=== PATIENT | female | born 1975 | race Caucasian/White ===

== ENCOUNTER 2018-05-30 11:28 | Emergency (ER) | payer MEDICAID ==
[~2018-05-30] VITALS: Ht 157.5 cm; Wt 83.0 kg
[2018-05-30 12:27] VITALS: Ht 157.5 cm; Wt 83.0 kg
[2018-05-30 13:43] LABS: BASOPHIL % 0.2 % (0-2); PLATELET COUNT 242 x10^3mcL (130-400)
[2018-05-30 13:52] LABS: RED CELL DISTRIBUTION WIDTH 14.6 % (11.5-14.5)
[2018-05-30 13:57] LABS: CALCIUM 9.3 mg/dL (8.5-10.1); CARBON DIOXIDE 24.4 mmol/L (21-32); CHLORIDE SERUM 105 mmol/L (98-107); CREATININE SERUM 0.7 mg/dL (0.6-1.0); GFR1 > 60 mL/min; GLUCOSE SERUM 114 mg/dL (74-106); POTASSIUM SERUM 4.5 mmol/L (3.5-5.1); SODIUM SERUM 135 mmol/L (136-145)
[2018-05-30 14:02] LABS: ALBUMIN 3.4 g/dL (3.4-5.0); ALKALINE PHOSPHATASE 77 U/L (46-116); ALT/SGPT 27 U/L (14-59); AST/SGOT 15 U/L (15-37); BILIRUBIN TOTAL 0.1 mg/dL (0.20-1.00); LIPASE 198 IU/L (73-393); TOTAL PROTEIN, SERUM 8.2 g/dL (6.4-8.2)
[2018-05-30 18:59] VITALS: BP 94/58
== END 2018-05-30 18:59 | disposition home or self-care (01) ==
LOC: ED 11:28
PROVIDERS: Emergency Medicine
DX: K29.70 Gastritis, unspecified, without bleeding (principal)
CPT/HCPCS: 36415; J1885; Q0162; Q9967

== ENCOUNTER 2018-07-05 15:57 | Emergency (ER) | payer SELFPAY ==
[~2018-07-05] VITALS: Ht 157.5 cm; Wt 81.6 kg
[2018-07-05 16:01] VITALS: Ht 157.5 cm; Wt 81.6 kg
[2018-07-05 18:06] VITALS: BP 117/73
== END 2018-07-05 18:11 | disposition home or self-care (01) ==
LOC: ED 15:57
DX: S33.5XXA Sprain of ligaments of lumbar spine, initial encounter (principal); S83.92XA Sprain of unspecified site of left knee, initial encounter; V43.52XA Car driver injured in collision with other type car in traffic accident, initial encounter; Y93.I9 Activity, other involving external motion; Y92.413 State road as the place of occurrence of the external cause; Y99.8 Other external cause status
CPT/HCPCS: J1885